=== PATIENT | male | born 1980 | race Caucasian/White ===

== ENCOUNTER 2020-09-11 14:24 | Emergency (ER) | payer OTHER ==
[~2020-09-11 14:24] MED LIST: CLEOCIN HCL300 MG PO
[2020-09-11] MEDS ORDERED: DOXYCYCLINE HY100 M2 PO (17:04)
[2020-09-14 18:11] LABS: CHLAMYDIA TRACHOMATIS, NAA Negative (Negative); NEISSERIA GONORRHOEAE, NAA Positive (Negative)
== END 2020-09-11 17:27 | disposition home or self-care (01) ==
LOC: ER1 14:24
PROVIDERS: Nurse Practitioner
DX: A74.9 Chlamydial infection, unspecified (principal); Z20.2 Contact with and (suspected) exposure to infections with a predominantly sexual mode of transmission
CPT/HCPCS: 81001; 96372; 99283; J0696

== ENCOUNTER 2021-03-09 07:31 | Emergency (ER) | payer SELFPAY ==
[~2021-03-09 07:31] MED LIST changes: +DOXYCYCLINE HY100 M2 PO
[2021-03-09] MEDS ORDERED: CEPHALEXIN500 M1 PO (08:40)
[2021-03-09] MEDS ORDERED: MUPIROCIN30 GM TP (08:40)
[2021-03-09] MEDS ORDERED: BACTRIM 400-801 EACH PO (08:40)
[2021-03-10 23:09] LABS: CHLAMYDIA TRACHOMATIS, NAA Positive (Negative); NEISSERIA GONORRHOEAE, NAA Negative (Negative)
== END 2021-03-09 10:06 | disposition home or self-care (01) ==
LOC: ER1 07:31
PROVIDERS: Emergency Medicine
DX: N48.1 Balanitis (principal)
CPT/HCPCS: 96372; 99284; J0696